=== PATIENT | female | born 1980 | race Caucasian/White ===

== ENCOUNTER 2024-06-05 16:08 | Outpatient (CLI) | payer OTHER, SELFPAY ==
[2024-06-05 17:31] LABS: HIV 1/2 Ab P24 Ag Result Negative (Negative)
[2024-06-05 17:54] LABS: Hepatitis B Surface Antigen Negative (Negative)
[2024-06-05 18:00] LABS: HAV RESULT Negative (Negative); Hepatitis B Core IgM Result Negative (Negative)
[2024-06-05 18:12] LABS: Hepatitis C Virus Antibody Negative (Negative)
[2024-06-06 06:16] LABS: Rapid Plasma Reagin Non-Reactive (NonReactive)
== END 2024-06-05 16:09 | disposition home or self-care (01) ==
LOC: ANHLAB 16:12
PROVIDERS: Visit Provider Obstetrics & Gynecology
DX: Z11.3 Encounter for screening for infections with a predominantly sexual mode of transmission (principal)
CPT/HCPCS: 36415; 80074; 86592; 86695; 86696; 86703; G0432